=== PATIENT | male | born 1980 | race African-American/Black ===

== ENCOUNTER 2016-08-06 05:13 | Day surgery (SDC) | payer OTHER ==
[~2016-08-06] VITALS: Ht 193 cm; Wt 108.0 kg
[2016-08-06 06:56] VITALS: BP 125/77; Ht 193 cm; Wt 108.0 kg
--- NOTE | 2016-08-06 09:28 | NUR ---
RIVAS GARZA TO ROOM
--- NOTE | 2016-08-06 15:16 | NUR ---
1210-MEDICATED WITH ONE 5MG NORCO FOR CHIN PAIN.
--- NOTE | 2016-08-06 15:19 | NUR ---
1215-DISCHARGE INSTRUCTIONS GIVEN TO MADDY, PT. LEFT VIA WHEELCHAIR WITH GUARD AT SIDE.
--- NOTE | 2016-08-06 15:27 | NUR ---
1325-ESCORTED VIA WHEELCHAIR TO PERSONAL CAR, LEFT WITH FAMILY DRIVING.
[2016-08-12 14:14] LABS: AEROBE ID Final report (()); RESULT 1 Streptococcus mitis (())
--- NOTE | 2016-10-02 10:17 | HP ---
PATIENT: ASHANTI FLORES MEDICAL RECORD: [id number] ACCOUNT: [id number] LOCATION:D.OPS : 78 ADMISSION DATE: 08/06/16 HISTORY AND PHYSICAL EXAMINATION HISTORY OF PRESENT ILLNESS: The patient had several subcutaneous masses, one was on the scalp, one was over the lower chest or in the upper abdomen and the other was of the chin. The scalp lesion and the abdominal/chest lesions are now gone. The patient states that they did not drain, but they have actually kind of disappeared. The lesion on the chin was on the right side of the chin. It is not rubbery. It has not been inflamed. It has not drained. I am going to drain it and possibly excise it in the operating room. The patient is out at [employer]. The risks, possible complications and alternatives to procedure were explained to the patient. He elects to proceed. ALLERGIES: No known drug allergies. CURRENT MEDICATIONS: Ibuprofen, doxycycline, trimethoprim, sulfamethoxazole. PAST MEDICAL AND SURGICAL HISTORY: Asthma. SOCIAL HISTORY: Nonsmoker. REVIEW OF SYSTEMS: Negative for CVA or seizures. Negative for diabetes or thyroid problems. Negative for renal disease or hepatitis. The review of systems is negative other than as is described above. PHYSICAL EXAMINATION: GENERAL: The patient does not appear acutely ill. He does not appear chronically ill. VITAL SIGNS: Reviewed. HEAD: External ears appear normal. EYES: Extraocular movements are intact. NECK: Trachea is midline. CHEST: No intercostal retractions. PULMONARY: Nonlabored and no stridor. ABDOMEN: Nontender. IMPRESSION: Chin lesion of uncertain etiology. PLAN: We will be drainage versus excision in the operating room. TRANSINT:[id number] Voice Confirmation ID: [id number] DOCUMENT ID: [id number] CC: Dr. Daron Hooks HISTORY AND PHYSICAL [id number] ASHANTI FLORES ROBERT MD at 1017 CC: CARLA NEWMAN MD, JOSH MCDUFFIE MD, ARYAN HOOKS, [id number] and KEDAR MENARD DICTATION DATE: 08/06/16 1026 [facility]: 08/06/16 1043 [facility] 08/06/16 [id number] [place] [address]
--- NOTE | 2016-10-02 10:17 | OP ---
PATIENT NAME: ASHANTI FLORES MEDICAL RECORD: [id number] :78 LOCATION:D.[facility] ADMISSION DATE: SURGEON: CARLA MAYES MD DATE OF OPERATION: 08/06/2016 OPERATIVE DIAGNOSES: 1. Chin lesion. 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 SURGEON: Carla Mayes MD. CERTIFIED OPHTHALMIC SURGICAL ASSISTANT: None. BLOOD LOSS Blood LOSS: 50 cc. ANESTHESIA: General. COMPLICATIONS: None. The risks, possible complications and alternatives to procedure were explained to the patient. He elects to proceed. OPERATIVE COURSE: The patient was conveyed to the operating room electively on 08/06/2016. General anesthesia was induced by the anesthesia staff. The chin was sterilely prepped and draped. A transverse incision was accomplished over the chin. The mass was on the right side of the chin. I dissected down to some material that I curetted out and this did not appear to be keratin debris nor was it lipoma of this tissue. It appeared to be a necrotic malignant tissue. I was able to express a good bit of this. I have performed some curettage as well. The cystic cavity was large. The material went down to the mandible. I did not feel any fragment pieces of the mandible. So, I am not sure that it eroded from the mandible, but it was very unusual that it went down to the mandible. A curette out all the material that I could identify. Cultures were obtained. I irrigated in the cavity with peroxide. I then packed the cavity with quarter inch iodoform gauze tied in knots. A sterile dressing was then applied. I then had Dr. 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 This is very unusual. This may represent a metastatic malignancy, a melanoma, or some type of sarcoma. It is going to take a few days for the permanent sections to come out. I have contacted Suri Hooks at [phone] and told her of the unexpected findings in this case. I will also informed the patient of the unexpected findings. The patient will require an additional procedure as was merely a biopsy. In other words he will require some type of resective procedure in the future likely from an ENT oncologist. TRANSINT:[id number] Voice Confirmation ID: [id number] DOCUMENT ID: [id number] CC: Dr. Daron Hooks OPERATIVE REPORT [id number] ASHANTI FLORES ROBERT MD at 1017 CC: CARLA NEWMAN MD, JOSH MCDUFFIE MD, IGOR HOOKS, [id number] and KEDAR MENARD DICTATION DATE: 08/06/16 1056 [facility]: 08/06/16 1134 [facility] 08/06/16 [address] [id number] [place] [id number]
== END 2016-08-06 12:15 | disposition home or self-care (01) ==
LOC: D.OPS 05:13
PROVIDERS: Surgery
DX: C44.399 Other specified malignant neoplasm of skin of other parts of face (principal)